=== PATIENT | female | born 1990 | race Caucasian/White ===

== ENCOUNTER → 2017-12-30 17:45 | Outpatient (CLI) | payer OTHER, SELFPAY ==
[2017-12-30 19:55] LABS: Free Thyroxine Index 2.3 ug/dL (5.93-13.13); T4 (Thyroxine) 6.6 ug/dl (4.7-13.3); Triiodothryronine (T3) Uptake 35 % (31-39)
[2018-01-01 14:43] LABS: FSH 7.9 mIU/mL (.); LH 5.4 mIU/mL (.)
== END ==
PROVIDERS: PCP Family Medicine; Visit Provider Nurse Practitioner Obstetrics & Gynecology
DX: N95.1 Menopausal and female climacteric states (principal); R53.83 Other fatigue
CPT/HCPCS: 36415; 82670; 83001; 83002; 84436; 84443; 84479